=== PATIENT | male | born 1980 | race Caucasian/White ===

== ENCOUNTER 2017-03-02 18:21 | Emergency (ER) | payer SELFPAY ==
--- NOTE | ~2017-03-02 | CR71 ---
[facility] A Service of [facility] RADIOLOGY TEXT RESULTS PATIENT: INDIO RAMIREZ LOCATION: SED : 80 UNIT #: [id number] AGE: [address]: Darlin Yates SEX: M ORDER DR: [id number] [address] [id number] [id number] MR#: [id number] Acc #: [id number] NAME: INDIO RAMIREZ : 1980 SEX: M STUDY DATE/TIME: 03/02/2017 18:56 UNIT: SED ROOM: STUDY DESCRIPTION: CR Chest Single View Attending Physician: Darlin Yates Pa-C Ordering Physician: Doc Jiménez M.D. Primary Care Physician: No Primary Care Physician MEDICAL IMAGING REPORT This report is preliminary unless electronic signature is present. EXAM Portable chest HISTORY Cough and sore throat and shortness of air for 2 weeks. FINDINGS A single AP portable view of the chest shows both lungs to be clear. The heart is normal in size. The mediastinal contour is normal. No significant bone abnormalities are seen. IMPRESSION Normal portable chest. Dictated by... Matt Mccurdy M.D. THIS IS AN ELECTRONICALLY VERIFIED REPORT Matt Mccurdy M.D. at 03/03/2017 2:58 PM DFL/liz TD: 03/02/2017 23:56 JOB #: [id number] MEDICAL IMAGING REPORT Page 1 of 1
[2017-03-02] MEDS ORDERED: NO MEDICATIONS (18:24)
== END 2017-03-02 19:37 | disposition home or self-care (01) ==
LOC: SED 18:21
DX: J20.9 Acute bronchitis, unspecified (principal); F17.210 Nicotine dependence, cigarettes, uncomplicated
CPT/HCPCS: 71010; 99283